=== PATIENT | female | born 1995 | race Caucasian/White ===

== ENCOUNTER 2016-07-11 09:50 | Emergency (ER) | payer OTHER ==
[~2016-07-11 09:50] MED LIST: LORTAB 5/500 TA1 TA1 PO; MOTRIN600 MG PO
[2016-07-11] MEDS ORDERED: AMOXICILLIN500 M1 (10:02)
== END 2016-07-11 11:36 | disposition home or self-care (01) ==
LOC: SED 09:50
DX: J02.9 Acute pharyngitis, unspecified (principal)
CPT/HCPCS: 36415; 84703; 86308; 87651; 99283